=== PATIENT | female | born 1965 | race Caucasian/White ===

== ENCOUNTER 2020-11-05 14:44 | Inpatient (IN) | payer OTHER, SELFPAY ==
[~2020-11-05 14:44] MED LIST: Iopamidol-370 76% 500 ML 1 ML ONE
[2020-11-05 15:03] LABS: #Basophils 0.1 thou/uL (0.0-0.2); #Eosinphils 0.1 thou/uL (0.0-0.7); #Lymphocytes 1.9 thou/uL (1.20-3.40); #Monocytes 0.5 thou/uL (0.11-0.59); #Neutrophils 7.2 thou/uL (1.40-6.50); %Basophils 0.6 % (0.0-1.0); %Eosinophils 1.4 % (0.0-10.0); %Lymphocytes 19.7 % (21.0-51.0); %Monocytes 5.1 % (0.0-10.0); %Neutrophils 73.2 % (42.0-75.0); Hemoglobin 13.8 g/dL (12.0-16.0); Mean Corpuscular HGB CONC 33.9 g/dL (32.0-36.0); Mean Corpuscular Hemoglobin 28.7 pg (27.0-31.0); Mean Corpuscular Volume 84.7 fL (78.0-98.0); Platelet Count 222 thou/uL (130-400); RBC Distribution Width 12.6 % (11.5-14.5); White Blood Cell (WBC) Count 9.8 thou/uL (4.8-10.8)
[2020-11-05 15:09] LABS: INR-International Normal Ratio 0.9; PTT 27.3 sec (22.9-36.1)
--- NOTE | 2020-11-05 15:23 | CT ---
CT BRAIN WITHOUT CONTRAST: HISTORY: Right facial droop, right-sided weakness and numbness. COMPARISON: 05/21/2016. FINDINGS: There is a new focal area of decreased attenuation in the left basal ganglia. No evidence of transco rtical infarction, hemorrhage, midline shift, or abnormal extraaxial fluid collections is seen. The ventricular size is normal and the basilar cisterns patent. The bony calvarium is intact. The visua lized paranasal sinuses are well aerated. IMPRESSION: Acute nonhemorrhagic left basal ganglia infarction. Discussed over the telephone with ER physician, Dr. Garza, at 3:00 p.m. CODE CR POS: OFF
[2020-11-05 15:24] LABS: ALT (SGPT) 18 U/L (8-55); AST (SGOT) 15 U/L (5-34); Albumin 4.3 g/dL (3.5-5.0); Alkaline Phosphatase 76 U/L (40-110); Anion Gap 15 mmol/L (10-20); BUN (Urea Nitrogen) 12 mg/dL (9.8-20.1); Bilirubin, Total 0.3 mg/dL (0.2-1.2); CK (CPK) 55 U/L (29-168); Calc. Creatinine Clearance 0 mL/min (70-130); Carbon Dioxide 24 mmol/L (22-29); Chloride 106 mmol/L (98-107); Globulin 3.4 g/dL (2.4-3.5); Glucose 151 mg/dL (70-105); Potassium 3.8 mmol/L (3.5-5.1); Protein, Total 7.7 g/dL (6.0-8.3); Sodium 141 mmol/L (136-145)
--- NOTE | 2020-11-05 15:29 | CT ---
CTA ANGIO HEAD WITH AND WITHOUT CONTRAST: History: Stroke alert. Right-sided facial droop with right-sided weakness and numbness. Comparison: CT brain same day. Findings: CT angiogram of the head and neck performed after the intravenous administration of contrast. 3-D will dering provided. Moderate emphysematous changes lung apices. The pulmonary trunk size appears within normal limits. Th e transverse aorta size is within normal limits. Origin of the right vertebral artery is patent. The left vertebral artery is dominant. Right vertebra l artery is patent. Left vertebral artery origin is patent. Left vertebral artery is patent. Right common carotid artery is patent. 30-40% narrowing proximal right internal carotid artery due to soft plaque. Right internal carotid artery is patent. Left common carotid artery is patent. The left internal carotid artery is occluded from the carotid b ulb to the cervical, petrous, cavernous and supraclinoid regions. In the [place] anterior cerebral arteries are patent and feed the left middle cerebral arter y through communication with the anterior communicating artery and posterior communicating artery. Asymmetric decreased flow within the left M1, M2, and M3 segments as well as the left M4 segments. De creased flow within the left lateral lenticulostriate arteries. Right M1, M2, M3, and M4 segments are patent. 50% narrowing of the cavernous right ICA axial image 203. Posterior cerebral arteries are patent. Basilar artery is patent. Impression: 1. Occluded entire left internal carotid artery from the carotid bulb throughout the entire cervical segment as well as the petrous, cavernous, and supraclinoid regions. Diminished flow within the left MCA due to communication with the anterior and posterior communicating arteries. 2. Focal 50% narrowing of the right cavernous internal carotid artery axial image 203. 3. Patent vertebral arteries with dominant left vertebral artery. Dr. Louise notified of findings via telephone at 3:29 PM. CODE CR Transcribed Date/Time: 11/05/2020 3:45 PM
--- NOTE | 2020-11-05 15:32 | RAD ---
EXAM: Single view of the chest HISTORY: Right facial drooping and altered mental status COMPARISON: 05/21/2016 FINDINGS: Single view of the chest shows a normal sized cardiomediastinal silhouette. A calcified gr anuloma is seen in the left lung base. There may be a calcified dural based plaque in the inferior aspect of the right thorax. There is no evidence of consolidation or pleural effusion. No acute osseo us abnormality. IMPRESSION: No evidence of acute cardiopulmonary disease
[2020-11-05] MEDS ORDERED: Aspirin 325 MG TAB ONE ×2 (16:09)
[2020-11-05 16:10] LABS: Acetaminophen Less than 6.0 mcg/mL (10.0-30.0); Alcohol Less than 10 mg/dL (Less than 10); Magnesium 1.7 mg/dL (1.6-2.6); Salicylate Less than 8.0 mg/dL (15.0-30.0)
[2020-11-05] MEDS ORDERED: hydrALAZINE 20 MG/ML VIAL SLOW IVP PRN (18:05)
[2020-11-05] MEDS ORDERED: Ondansetron PF 4 MG/2 ML Vial IVP PRN (18:05)
[2020-11-05] MEDS ORDERED: Acetaminophen 325 MG TAB PO PRN (18:05)
[2020-11-05] MEDS ORDERED: Dextrose 50% Abboject 50 ML SYRINGE SLOW IVP PRN (18:14)
[2020-11-05] MEDS ORDERED: Dextrose 5% in Water 1,000 ML IV PRN (18:14)
--- NOTE | 2020-11-05 18:38 | PDOC.HHP ---
Hospitalist HPI Right-sided weaknss, slurred speech History of Present Illness: Patient is 55-year-old female with PMH of HTN, DM type II, depression, and fibromyalgia who presents to the ED with right-sided weakness and confusion. P atient states she had some weakness on her right side, associated with slurred speech and some confusion around 10:00 PM last night. Patient's boss called family as patient did not show up to work today. Family found patient today sitting on a chair confused, with right-sided weakness, slurred speech, and right facial droop. Patient denies headache, numbness, tingling, nausea, or vomiting. ED Course: CT head done in the ED showed acute nonhemorrhagic left basal ganglia infarction. CTA head showed occluded entire left internal carotid artery from the carotid bulb throughout the entire cervical segment as well as the petrous, cavernous, and supraclinoid regions. Focal narrowing of the right cavernous internal carotid artery. Allergies/Adverse Reactions: Allergy/AdvReac Type Severity Reaction Status Date / Time No Known Allergies Allergy Unverified 11/05/20 18:03 Comments: Metformin Metoprolol Gabapentin Patient does not remember the dose of her home meds Past History: PMHx: DM II, HTN , Depression, Fibromyalgia PSHx: cyst removal from back FHx: Father: heart disease Social: smokes 1/2 pack per day, denies alcohol or drug use Hospitalist HPI ROS Constitutional: denies: fever, chills Eyes: denies: vision change ENT: denies: throat pain Respiratory: denies: shortness of breath Cardiovascular: denies: chest pain Gastrointestinal: denies: nausea, vomiting Genitourinary: denies: dysuria Skin: denies: rash Neurological: reports: weakness, confusion. denies: numbness All other systems reviewed; all pertinent +/- noted in HPI/Subj Hospitalist Exam General Appearance: NAD, awake alert Eye: PERRL ENT: moist mucosa Neck: supple Heart: RRR, no murmur Respiratory: CTAB, no tachypnea Gastrointestinal: soft, non-tender, non-distended Extremities: no edema Skin: normal turgor Neurological: cranial nerve grossly intact (except mild right-sided facial droop), normal sensation to touch Neurological - other findings: decreased strength on the RUE and RLE, dysphasia present Psychiatric: A&O x 3 Psychiatric - other findings: at time slow to answer questions Hospitalist Results Result Diagrams: 11/05/20 14:53 11/05/20 14:53 Lab results: Laboratory Last Values WBC 9.8 thou/uL (4.8-10.8) 11/05/20 14:53 RBC 4.80 mill/uL (4.20-5.40) 11/05/20 14:53 Hgb 13.8 g/dL (12.0-16.0) 11/05/20 14:53 Hct 40.6 % (36.0-47.0) 11/05/20 14:53 MCV 84.7 fL (78.0-98.0) 11/05/20 14:53 MCH 28.7 pg (27.0-31.0) 11/05/20 14:53 MCHC 33.9 g/dL (32.0-36.0) 11/05/20 14:53 RDW 12.6 % (11.5-14.5) 11/05/20 14:53 Plt Count 222 thou/uL (130-400) 11/05/20 14:53 MPV 8.0 fL (7.4-10.4) 11/05/20 14:53 Neutrophils % 73.2 % (42.0-75.0) 11/05/20 14:53 Lymphocytes % 19.7 % (21.0-51.0) L 11/05/20 14:53 Monocytes % 5.1 % (0.0-10.0) 11/05/20 14:53 Eosinophils % 1.4 % (0.0-10.0) 11/05/20 14:53 Basophils % 0.6 % (0.0-1.0) 11/05/20 14:53 Neutrophils # 7.2 thou/uL (1.40-6.50) H 11/05/20 14:53 Lymphocytes # 1.9 thou/uL (1.20-3.40) 11/05/20 14:53 Monocytes # 0.5 thou/uL (0.11-0.59) 11/05/20 14:53 Eosinophils # 0.1 thou/uL (0.0-0.7) 11/05/20 14:53 Basophils # 0.1 thou/uL (0.0-0.2) 11/05/20 14:53 PT 12.0 sec (12.0-14.7) 11/05/20 14:53 INR 0.9 11/05/20 14:53 APTT 27.3 sec (22.9-36.1) 11/05/20 14:53 Sodium 141 mmol/L (136-145) 11/05/20 14:53 Potassium 3.8 mmol/L (3.5-5.1) 11/05/20 14:53 Chloride 106 mmol/L (98-107) 11/05/20 14:53 Carbon Dioxide 24 mmol/L (22-29) 11/05/20 14:53 Anion Gap 15 mmol/L (10-20) 11/05/20 14:53 BUN 12 mg/dL (9.8-20.1) 11/05/20 14:53 Creatinine 0.69 mg/dL (0.6-1.1) 11/05/20 14:53 Estimated GFR (MDRD) 89 11/05/20 14:53 Glucose 151 mg/dL (70-105) H 11/05/20 14:53 Lactic Acid 1.0 mmol/L (0.5-2.2) 11/05/20 15:13 Calcium 9.0 mg/dL (7.8-10.44) 11/05/20 14:53 Magnesium 1.7 mg/dL (1.6-2.6) 11/05/20 15:35 Total Bilirubin 0.3 mg/dL (0.2-1.2) 11/05/20 14:53 AST 15 U/L (5-34) 11/05/20 14:53 ALT 18 U/L (8-55) 11/05/20 14:53 Alkaline Phosphatase 76 U/L (40-110) 11/05/20 14:53 Creatine Kinase 55 U/L (29-168) 11/05/20 14:53 Troponin I Less than 0.010 ng/mL (< 0.028) 11/05/20 14:53 Serum Total Protein 7.7 g/dL (6.0-8.3) 11/05/20 14:53 Albumin 4.3 g/dL (3.5-5.0) 11/05/20 14:53 Globulin 3.4 g/dL (2.4-3.5) 11/05/20 14:53 Albumin/Globulin Ratio 1.3 g/dL (1.2-2.2) 11/05/20 14:53 Lipase 14 U/L (8-78) 11/05/20 15:35 Salicylates Less than 8.0 mg/dL (15.0-30.0) L 11/05/20 15:35 Acetaminophen Less than 6.0 mcg/mL (10.0-30.0) L 11/05/20 15:35 Plasma Alcohol Less than 10 mg/dL (Less than 10) 11/05/20 15:35 Hospitalist H&P A/P (1) CVA (cerebral vascular accident) Code(s): I63.9 - CEREBRAL INFARCTION, UNSPECIFIED Status: Acute Qualifiers: Precerebral and cerebral artery: carotid artery Laterality of affected vessel: left Assessment and Plan: Patient presented with right-sided weakness, dysphagia, and mild confusion. CT head showed acute left basal ganglia infarction. CTA head showed significant left internal carotid artery occlusion, ED physician talked to Dr. Hughes who stated that patient less likely to benefit from surgical intervention and manda mmended aspirin. Plan: -frequent neuro checks -permissive HTN -Lipid panel, Hgb A1c level -MRI brain wo contrast, Echo -daily aspirin and Lipitor -PT/OT/speech consulted (2) Carotid stenosis Code(s): I65.29 - OCCLUSION AND STENOSIS OF UNSPECIFIED CAROTID ARTERY Status: Chronic Qualifiers: Laterality: bilateral Qualified Code(s): I65.23 - Occlusion and stenosis of bilateral carotid arteries Assessment and Plan: -daily aspirin as above (3) HTN (hypertension) Code(s): I10 - ESSENTIAL (PRIMARY) HYPERTENSION Status: Chronic Assessment and Plan: -permissive HTN for now -Hydralazin iv prn (4) DM type 2 (diabetes mellitus, type 2) Status: Chronic Qualifiers: Diabetes mellitus terminal press operator insulin use: with terminal press operator use Assessment and Plan: Plan: -Hgb A1c -SS insulin ACHS
[2020-11-05 20:56] VITALS: BMI 22.1
[2020-11-05] MEDS: Atorvastatin Calcium 40 MG TAB PO SCH (21:04)
[2020-11-06 04:26] LABS: #Basophils 0.1 thou/uL (0.0-0.2); #Eosinphils 0.1 thou/uL (0.0-0.7); #Lymphocytes 1.8 thou/uL (1.20-3.40); #Monocytes 0.4 thou/uL (0.11-0.59); #Neutrophils 5.9 thou/uL (1.40-6.50); %Eosinophils 1.5 % (0.0-10.0); %Lymphocytes 21.5 % (21.0-51.0); %Monocytes 4.8 % (0.0-10.0); %Neutrophils 71.2 % (42.0-75.0); Hemoglobin 13.5 g/dL (12.0-16.0); Mean Corpuscular HGB CONC 33.9 g/dL (32.0-36.0); Mean Corpuscular Hemoglobin 28.3 pg (27.0-31.0); Mean Corpuscular Volume 83.5 fL (78.0-98.0); Mean Platelet Volume 8.1 fL (7.4-10.4); Platelet Count 205 thou/uL (130-400); RBC Distribution Width 12.4 % (11.5-14.5); Red Blood Cell (RBC) Count 4.77 mill/uL (4.20-5.40); White Blood Cell (WBC) Count 8.3 thou/uL (4.8-10.8)
[2020-11-06 04:33] LABS: Hemoglobin A1c 9.1 % (4.0-6.0)
--- NOTE | 2020-11-06 04:35 | PDOC.EVN ---
Event Note - Event Note Event Note: Nursing reported 8 beats non sustained vtach. Asymptomatic, VSS. Reviewed labs, mag relative low, will replace. Morning labs pending.
[2020-11-06 04:49] LABS: Anion Gap 13 mmol/L (10-20); BUN (Urea Nitrogen) 10 mg/dL (9.8-20.1); Calc. Creatinine Clearance 97 mL/min (70-130); Carbon Dioxide 26 mmol/L (22-29); Cardiac Risk 4.3 (Less than 4.5); Chloride 105 mmol/L (98-107); Cholesterol 223 mg/dl (< 200 Desired); Glucose 167 mg/dL (70-105); HDL Cholesterol 52 mg/dL (>60 Neg Risk); LDL Cholesterol, Calculated 131 mg/dL; Potassium 3.7 mmol/L (3.5-5.1); Sodium 140 mmol/L (136-145); Triglycerides 202 mg/dL (Less than 150)
[2020-11-06] MEDS: HumaLOG 300 UNITS/3 ML VIAL SC PRN ×3 (06:27→18:02)
[2020-11-06 06:36] LABS: SARS-CoV-2 PCR by NAA Not Detected (NotDetected)
--- NOTE | 2020-11-06 09:24 | MRI ---
Exam: Brain MRI without contrast HISTORY: Right-sided numbness, starting yesterday. COMPARISON: None Correlation: Noncontrast head CT 11/05/2020 FINDINGS: Calvarial marrow signal intensity: Appropriate T1 signal Gradient echo sequence: Hemorrhage associated with infarct involving the left deep shipman matter struct ures Brain parenchyma: There is edema associated with the acute the left basal ganglion infarct. Mild mass effect upon the left lateral ventricle. No significant midline shift. Cortical shipman-white matter differentiation: Preserved Restricted diffusion: Restricted diffusion involving the left basal ganglion. White matter signal intensities: T2, FLAIR white matter hyperintensities due to chronic small vessel ischemic changes Sinuses: Adequate aeration of the paranasal sinuses and mastoid air cells. IMPRESSION: 1. Acute infarct involving the left basal ganglion.
[2020-11-06] MEDS: Aspirin 81 mg Enteric Coated Tablet PO SCH (09:27)
--- NOTE | 2020-11-06 12:46 | CON ---
NEUROLOGY CONSULTATION DATE OF CONSULTATION: 11/06/2020 REASON FOR CONSULTATION: Right-sided weakness, slurred speech, CVA. HISTORY OF PRESENT ILLNESS: Ms. Kera Watters is a 55-year-old female with medical history significant for hypertension, type 2 diabetes mellitus, depression, and fibromyalgia, presented to the emergency room with right-sided weakness and altered mental status. Per the patient, she had weakness on her right side of the body with slurred speech with confusion, which was around 10:00 pm on 11/03/2020. Per the patient, the patient's boss called the family since she was not able to show up for work and they found her sitting in the chair confused with right-sided weakness, slurred speech, and right facial droop. She presented to the emergency room later in the evening and did not fit in the criteria for tPA. In the emergency room, head CT was done, which showed acute nonhemorrhagic left basal ganglia infarction. CTA of the head showed entire left internal carotid artery occlusion from the carotid bulb throughout the cervical segment, which extends to the petrous, cavernous, and supraclinoid region. There is also focal narrowing of the right cavernous internal carotid artery. She was given aspirin and admitted for further evaluation. The patient denies nausea, vomiting, headache, chest pain, abdominal pain, recent illness, double vision, loss of vision, problems with swallowing, but does have problems with speech associated with stroke-like symptoms. ALLERGIES: NO KNOWN DRUG ALLERGIES. HOME MEDICATIONS: 1. Metformin. 2. Gabapentin. PAST MEDICAL HISTORY: 1. Diabetes mellitus, type 2. 2. Hypertension. 3. Depression. 4. Fibromyalgia. PAST SURGICAL HISTORY: Cyst removal from back. FAMILY HISTORY: Father has history of coronary artery disease. SOCIAL HISTORY: The patient smokes half pack per day. Denies alcohol or illegal drug use. REVIEW OF SYSTEMS: All systems reviewed and were negative except the pertinent positive and negative mentioned in the HPI. Vital Signs & Weight: Vital Signs (12 hours) Temp Pulse Pulse Pulse Resp BP BP 11/06/20 09:50 106 H 97 137/101 H 154/83 H 11/06/20 07:50 97.7 F 70 12 11/06/20 03:00 98.1 F 109 H 22 H BP Pulse Ox 11/06/20 09:50 11/06/20 07:50 147/96 H 97 11/06/20 03:00 122/94 H 95 Weight Weight 137 lb 4.8 oz Additional Labs: Accuchecks 11/06/20 11/06/20 11/05/20 10:18 05:10 20:21 POC Glucose 322 H 182 H 126 H Active Medications Generic Name Dose Route Start Last Admin Trade Name Freq PRN Reason Stop Dose Admin Aspirin 81 mg 11/06/20 09:00 11/06/20 09:27 Aspirin 81 Mg Enteric Coated Tablet PO 81 mg DAILY YAIMA Administration Atorvastatin Calcium 80 mg 11/05/20 21:00 11/05/20 21:04 Atorvastatin Calcium 40 Mg Tab PO 80 mg HS YAIMA Administration Insulin Human Lispro 0 units 11/05/20 18:14 11/06/20 06:27 Humalog 300 Units/3 Ml Vial SC 2 unit .MILD SLIDING SCALE PRN Administration Mild Correctional Scale Vitals: Vital Signs (12 hours) Temp Pulse Pulse Pulse Resp BP BP 11/06/20 09:50 106 H 97 137/101 H 154/83 H 11/06/20 07:50 97.7 F 70 12 11/06/20 03:00 98.1 F 109 H 22 H BP Pulse Ox 11/06/20 09:50 11/06/20 07:50 147/96 H 97 11/06/20 03:00 122/94 H 95 Weight Weight 137 lb 4.8 oz PHYSICAL EXAMINATION: General Appearance: NAD, awake alert Eye: PERRL ENT: normocephalic atraumatic Neck: supple Heart: RRR Respiratory: CTAB, normal chest expansion Gastrointestinal: soft, normal bowel sounds Neurological: Mental status; the patient is alert and oriented to person, place, and time. She does have dysarthria. Cranial nerves 2 through 12 intact except 7 for right facial droop and 9 and 10 for dysarthria. Motor; muscle tone and bulk are normal. Strength; she does have mild right hemiparesis, 4/5. Sensory; intact. Cerebellar; finger-nose testing slow on the right secondary to weakness. Gait; deferred due to the patient's safety reason. DATA REVIEWED: I reviewed the labs, which were essentially unremarkable except hyperglycemia of 151. Lab results: Laboratory Last Values WBC 9.8 thou/uL (4.8-10.8) 11/05/20 14:53 RBC 4.80 mill/uL (4.20-5.40) 11/05/20 14:53 Hgb 13.8 g/dL (12.0-16.0) 11/05/20 14:53 Hct 40.6 % (36.0-47.0) 11/05/20 14:53 MCV 84.7 fL (78.0-98.0) 11/05/20 14:53 MCH 28.7 pg (27.0-31.0) 11/05/20 14:53 MCHC 33.9 g/dL (32.0-36.0) 11/05/20 14:53 RDW 12.6 % (11.5-14.5) 11/05/20 14:53 Plt Count 222 thou/uL (130-400) 11/05/20 14:53 MPV 8.0 fL (7.4-10.4) 11/05/20 14:53 Neutrophils % 73.2 % (42.0-75.0) 11/05/20 14:53 Lymphocytes % 19.7 % (21.0-51.0) L 11/05/20 14:53 Monocytes % 5.1 % (0.0-10.0) 11/05/20 14:53 Eosinophils % 1.4 % (0.0-10.0) 11/05/20 14:53 Basophils % 0.6 % (0.0-1.0) 11/05/20 14:53 Neutrophils # 7.2 thou/uL (1.40-6.50) H 11/05/20 14:53 Lymphocytes # 1.9 thou/uL (1.20-3.40) 11/05/20 14:53 Monocytes # 0.5 thou/uL (0.11-0.59) 11/05/20 14:53 Eosinophils # 0.1 thou/uL (0.0-0.7) 11/05/20 14:53 Basophils # 0.1 thou/uL (0.0-0.2) 11/05/20 14:53 PT 12.0 sec (12.0-14.7) 11/05/20 14:53 INR 0.9 11/05/20 14:53 APTT 27.3 sec (22.9-36.1) 11/05/20 14:53 Sodium 141 mmol/L (136-145) 11/05/20 14:53 Potassium 3.8 mmol/L (3.5-5.1) 11/05/20 14:53 Chloride 106 mmol/L (98-107) 11/05/20 14:53 Carbon Dioxide 24 mmol/L (22-29) 11/05/20 14:53 Anion Gap 15 mmol/L (10-20) 11/05/20 14:53 BUN 12 mg/dL (9.8-20.1) 11/05/20 14:53 Creatinine 0.69 mg/dL (0.6-1.1) 11/05/20 14:53 Estimated GFR (MDRD) 89 11/05/20 14:53 Glucose 151 mg/dL (70-105) H 11/05/20 14:53 Lactic Acid 1.0 mmol/L (0.5-2.2) 11/05/20 15:13 Calcium 9.0 mg/dL (7.8-10.44) 11/05/20 14:53 Magnesium 1.7 mg/dL (1.6-2.6) 11/05/20 15:35 Total Bilirubin 0.3 mg/dL (0.2-1.2) 11/05/20 14:53 AST 15 U/L (5-34) 11/05/20 14:53 ALT 18 U/L (8-55) 11/05/20 14:53 Alkaline Phosphatase 76 U/L (40-110) 11/05/20 14:53 Creatine Kinase 55 U/L (29-168) 11/05/20 14:53 Troponin I Less than 0.010 ng/mL (< 0.028) 11/05/20 14:53 Serum Total Protein 7.7 g/dL (6.0-8.3) 11/05/20 14:53 Albumin 4.3 g/dL (3.5-5.0) 11/05/20 14:53 Globulin 3.4 g/dL (2.4-3.5) 11/05/20 14:53 Albumin/Globulin Ratio 1.3 g/dL (1.2-2.2) 11/05/20 14:53 Lipase 14 U/L (8-78) 11/05/20 15:35 Salicylates Less than 8.0 mg/dL (15.0-30.0) L 11/05/20 15:35 Acetaminophen Less than 6.0 mcg/mL (10.0-30.0) L 11/05/20 15:35 Plasma Alcohol Less than 10 mg/dL (Less than 10) 11/05/20 15:35 ASSESSMENT AND PLAN: (1) CVA (cerebral vascular accident) Code(s): I63.9 - CEREBRAL INFARCTION, UNSPECIFIED Status: Acute Qualifiers: Precerebral and cerebral artery: carotid artery Laterality of affected vessel: left (2) Carotid stenosis Code(s): I65.29 - OCCLUSION AND STENOSIS OF UNSPECIFIED CAROTID ARTERY Status: Chronic (3) HTN (hypertension) Code(s): I10 - ESSENTIAL (PRIMARY) HYPERTENSION Status: Chronic (4) DM type 2 (diabetes mellitus, type 2) Status: Chronic MsLakeisha watters is a 55-year-old female with history significant for hypertension, diabetes mellitus, and fibromyalgia, presented with history of right-sided weakness with dysphagia and mild confusion. Head CT showed acute left basal ganglia infarction. CTA of the head did show left carotid artery occlusions occlusion. Dr. Hughes was asked to review the scans to see if she needs any surgical intervention regarding her age, but he does not feel that she is a candidate for surgical intervention. She will continue aspirin and high- intensity statin for secondary stroke prevention. Neuro checks every 4 hours. Check hemoglobin A1c, lipid panel, and TSH. Telemetry to rule out arrhythmias. 2D echo to evaluate left ventricular ejection fraction. Continue permissive control of blood pressure at this time. Strict control of blood glucose. EEG to evaluate for confusion associated with stroke-like symptoms. Continue home medications. Continue medical management per primary team. PT/OT/speech. We will continue to follow. Plan discussed in detail with the patient and the daughter at bedside. Thank you for the consult. Job ID: [id number] [email or web address]
--- NOTE | 2020-11-06 12:52 | PDOC.HOSPP ---
- Subjective Encounter Date: 11/06/20 Encounter Time: 10:10 Subjective: Patient seen this morning she has significant dysarthria and left-sided facial droop. She is able to walk independently with physical therapist supervision this morning. She is alert oriented x3 - Objective Vital Signs & Weight: Vital Signs (12 hours) Temp Pulse Pulse Pulse Resp BP BP 11/06/20 09:50 106 H 97 137/101 H 154/83 H 11/06/20 07:50 97.7 F 70 12 11/06/20 03:00 98.1 F 109 H 22 H BP Pulse Ox 11/06/20 09:50 11/06/20 07:50 147/96 H 97 11/06/20 03:00 122/94 H 95 Weight Weight 137 lb 4.8 oz Result Diagrams: 11/06/20 04:09 11/06/20 04:09 Additional Labs: Accuchecks 11/06/20 11/06/20 11/05/20 10:18 05:10 20:21 POC Glucose 322 H 182 H 126 H Hospitalist ROS - Medication Medications: Active Medications Generic Name Dose Route Start Last Admin Trade Name Freq PRN Reason Stop Dose Admin Aspirin 81 mg 11/06/20 09:00 11/06/20 09:27 Aspirin 81 Mg Enteric Coated Tablet PO 81 mg DAILY YAIMA Administration Atorvastatin Calcium 80 mg 11/05/20 21:00 11/05/20 21:04 Atorvastatin Calcium 40 Mg Tab PO 80 mg HS YAIMA Administration Insulin Human Lispro 0 units 11/05/20 18:14 11/06/20 06:27 Humalog 300 Units/3 Ml Vial SC 2 unit .MILD SLIDING SCALE PRN Administration Mild Correctional Scale Hospitalist Exam Vitals: Vital Signs (12 hours) Temp Pulse Pulse Pulse Resp BP BP 11/06/20 09:50 106 H 97 137/101 H 154/83 H 11/06/20 07:50 97.7 F 70 12 11/06/20 03:00 98.1 F 109 H 22 H BP Pulse Ox 11/06/20 09:50 11/06/20 07:50 147/96 H 97 11/06/20 03:00 122/94 H 95 Weight Weight 137 lb 4.8 oz General Appearance: NAD, awake alert Eye: PERRL ENT: normocephalic atraumatic Neck: supple Heart: RRR Respiratory: CTAB, normal chest expansion Gastrointestinal: soft, normal bowel sounds Neurological: normal sensation to touch, no weakness, facial droop, speech deficit Psychiatric: normal affect, normal behavior, A&O x 3 Hosp A/P - Plan CVA (cerebral vascular accident) Patient presented with right-sided weakness, dysphagia, and mild confusion. CT head showed acute left basal ganglia infarction. CTA head showed significant left internal carotid artery occlusion, ED physician talked to Dr. Hughes who stated that patient less likely to benefit from surgical intervention and recommended aspirin. -Continue with neurochecks -LDL level is 131--started on Lipitor -permissive HTN MRI of the brain shows acute infarct in the left basal ganglia -MRI brain wo contrast, Echo -daily aspirin and Lipitor -PT/OT/speech consulted -Echo showed EF of 65% and a normal size right ventricle no evidence of mitral regurgitation normal aortic valve. (2) Carotid stenosis -daily aspirin as above (3) HTN (hypertension) -permissive HTN for now -Hydralazin iv prn for systolic blood pressure above 180. (4) DM type 2 (diabetes mellitus, type 2) S -Hgb A1c 9.1; creatinine in the normal range we will start her on Metformin in addition to sliding scale insulin. Continue with physical therapy speech therapy. P She needs ongoing speech therapy evaluation and treatment upon discharge either to inpatient rehab or with home health
[2020-11-06] MEDS: Magnesium 2 GM/50 ML 2 GM in Premix Bag 1 BAG IVPB SCH (13:41)
[2020-11-06] MEDS: metFORMIN 500 MG TAB PO SCH (18:02)
[2020-11-06] MEDS: Atorvastatin Calcium 40 MG TAB PO SCH (20:08)
[2020-11-07 05:17] LABS: #Eosinphils 0.1 thou/uL (0.0-0.7); #Lymphocytes 1.9 thou/uL (1.20-3.40); #Monocytes 0.5 thou/uL (0.11-0.59); #Neutrophils 5.3 thou/uL (1.40-6.50); %Basophils 0.4 % (0.0-1.0); %Eosinophils 1.1 % (0.0-10.0); %Monocytes 6.6 % (0.0-10.0); %Neutrophils 67.9 % (42.0-75.0); Hemoglobin 13.8 g/dL (12.0-16.0); Mean Corpuscular HGB CONC 33.4 g/dL (32.0-36.0); Mean Corpuscular Volume 83.9 fL (78.0-98.0); Mean Platelet Volume 8.3 fL (7.4-10.4); Platelet Count 213 thou/uL (130-400); RBC Distribution Width 12.6 % (11.5-14.5); Red Blood Cell (RBC) Count 4.93 mill/uL (4.20-5.40); White Blood Cell (WBC) Count 7.9 thou/uL (4.8-10.8)
[2020-11-07 05:33] LABS: Anion Gap 15 mmol/L (10-20); BUN (Urea Nitrogen) 13 mg/dL (9.8-20.1); Calc. Creatinine Clearance 90 mL/min (70-130); Calcium 8.9 mg/dL (7.8-10.44); Carbon Dioxide 26 mmol/L (22-29); Chloride 102 mmol/L (98-107); Glucose 221 mg/dL (70-105); Potassium 3.6 mmol/L (3.5-5.1); Sodium 139 mmol/L (136-145)
[2020-11-07] MEDS: HumaLOG 300 UNITS/3 ML VIAL SC PRN ×3 (06:09→17:49)
[2020-11-07] MEDS: Aspirin 81 mg Enteric Coated Tablet PO SCH (09:34)
[2020-11-07] MEDS: metFORMIN 500 MG TAB PO SCH ×2 (09:34→17:49)
--- NOTE | 2020-11-07 12:08 | RAD ---
MODIFIED BARIUM SWALLOW: HISTORY: Dysphagia following cerebral infarction. EXPOSURE: 1.7 minutes. 0.797 uGy*^cm2. FINDINGS: In the presence of a speech pathologist, the patient was administered thin liquid, thick liquid, pudd ing and solid consistencies. There is penetration with the thin liquid, nectar thick liquid, and pudding consistency. There is pre mature spillage with all of those consistencies as well as with solid consistency. IMPRESSION: Please refer to speech pathologist report for feeding recommendation Transcribed Date/Time: 11/07/2020 12:26 PM
--- NOTE | 2020-11-07 12:14 | PDOC.HOSPP ---
- Subjective Encounter Date: 11/07/20 Encounter Time: 08:30 Subjective: Patient speech is much better improved speech therapy followed it looks like she probably need modified barium swallow study which she will be doing today. She is ambulating without any distress. Ongoing dysarthria. Patient discharge plan discussed and she prefers to go home and will arrange for home speech therapy. - Objective Vital Signs & Weight: Vital Signs (12 hours) Temp Pulse Resp BP BP Pulse Ox 11/07/20 11:55 98.2 F 105 H 20 152/82 H 95 11/07/20 08:00 98.3 F 104 H 18 158/84 H 99 11/07/20 04:00 98.6 F 106 H 18 134/92 H 95 Weight Weight 137 lb 4.8 oz I&O: 11/06/20 11/07/20 11/08/20 06:59 06:59 06:59 Intake Total 1050 Balance 1050 Result Diagrams: 11/07/20 04:40 11/07/20 04:40 Additional Labs: Accuchecks 11/07/20 11/07/20 11/06/20 10:25 06:02 20:25 POC Glucose 246 H 244 H 185 H 11/06/20 17:03 POC Glucose 258 H Hospitalist ROS - Medication Medications: Active Medications Generic Name Dose Route Start Last Admin Trade Name Buzzq PRN Reason Stop Dose Admin Aspirin 81 mg 11/06/20 09:00 11/07/20 09:34 Aspirin 81 Mg Enteric Coated Tablet PO 81 mg DAILY YAIMA Administration Atorvastatin Calcium 80 mg 11/05/20 21:00 11/06/20 20:08 Atorvastatin Calcium 40 Mg Tab PO 80 mg HS YAIMA Administration Magnesium Sulfate 2 gm/ Device 50 mls @ 50 mls/hr 11/06/20 14:00 11/06/20 13:41 IVPB 50 mls 1400 YAIMA Administration Insulin Human Lispro 0 units 11/05/20 18:14 11/07/20 06:09 Humalog 300 Units/3 Ml Vial SC 3 unit .MILD SLIDING SCALE PRN Administration Mild Correctional Scale Metformin HCl 500 mg 11/06/20 17:00 11/07/20 09:34 Metformin 500 Mg Tab PO 500 mg BID-WM YAIMA Administration Hospitalist Exam Vitals: Vital Signs (12 hours) Temp Pulse Resp BP BP Pulse Ox 11/07/20 11:55 98.2 F 105 H 20 152/82 H 95 11/07/20 08:00 98.3 F 104 H 18 158/84 H 99 11/07/20 04:00 98.6 F 106 H 18 134/92 H 95 Weight Weight 137 lb 4.8 oz General Appearance: NAD, awake alert Eye: PERRL ENT: normocephalic atraumatic Neck: supple Heart: RRR, normal peripheral pulses Respiratory: CTAB, normal chest expansion Gastrointestinal: soft, normal bowel sounds Neurological: no weakness, speech deficit Hosp A/P - Plan CVA (cerebral vascular accident) Patient presented with right-sided weakness, dysphagia, and mild confusion. CT head showed acute left basal ganglia infarction. CTA head showed significant left internal carotid artery occlusion, ED physician talked to Dr. Hughes who stated that patient less likely to benefit from surgical intervention and recommended aspirin. -Continue with neurochecks -LDL level is 131--started on Lipitor -permissive HTN MRI of the brain shows acute infarct in the left basal ganglia -MRI brain wo contrast, Echo -daily aspirin and Lipitor -PT/OT/speech consulted -Echo showed EF of 65% and a normal size right ventricle no evidence of mitral regurgitation normal aortic valve. (2) Carotid stenosis -daily aspirin as above (3) HTN (hypertension) -permissive HTN for now -Hydralazin iv prn for systolic blood pressure above 180. (4) DM type 2 (diabetes mellitus, type 2) S -Hgb A1c 9.1; creatinine in the normal range we will start her on Metformin in addition to sliding scale insulin. Continue with physical therapy speech therapy. P She needs ongoing speech therapy evaluation and treatment upon discharge either to inpatient rehab or with home health 11th speech is much better improved speech therapy followed it looks like she probably need modified barium swallow study which she will be doing today. She is ambulating without any distress. Ongoing dysarthria. Patient discharge plan discussed and she prefers to go home and will arrange for home speech therapy.
--- NOTE | 2020-11-07 12:59 | PDOC.NEUPN ---
- Subjective Encounter Date: 11/07/20 Subjective: Ms. Watters feels better today. She underwent modified barium swallow and recommended to have nectar and thick liquid diet. - Objective Vital Signs & Weight: Vital Signs (12 hours) Temp Pulse Resp BP BP Pulse Ox 11/07/20 11:55 98.2 F 105 H 20 152/82 H 95 11/07/20 08:00 98.3 F 104 H 18 158/84 H 99 11/07/20 04:00 98.6 F 106 H 18 134/92 H 95 Weight Weight 137 lb 4.8 oz I&O: 11/06/20 11/07/20 11/08/20 06:59 06:59 06:59 Intake Total 1050 Balance 1050 Result Diagrams: 11/07/20 04:40 11/07/20 04:40 Additional Labs: Accuchecks 11/07/20 11/07/20 11/06/20 10:25 06:02 20:25 POC Glucose 246 H 244 H 185 H 11/06/20 17:03 POC Glucose 258 H Radiology Reviewed by me: Yes EKG Reviewed by me: Yes ROS - Review of Systems Constitutional: denies: fever, chills, sweats, weakness, malaise, other ENT: denies: ear pain, ear discharge, nose pain, nose discharge, nose congestion, mouth pain, mouth swelling, throat pain, throat swelling, other Gastrointestinal: denies: nausea, vomiting, abdominal pain, diarrhea, constipation, melena, hematochezia, other Musculoskeletal: denies: neck pain, shoulder pain, arm pain, back pain, hand pain, leg pain, foot pain, other Skin: denies: rash, lesions, yaneth, bruising, other Neurological: reports: weakness, numbness - Medication Medications: Active Medications Generic Name Dose Route Start Last Admin Trade Name Freq PRN Reason Stop Dose Admin Aspirin 81 mg 11/06/20 09:00 11/07/20 09:34 Aspirin 81 Mg Enteric Coated Tablet PO 81 mg DAILY YAIMA Administration Atorvastatin Calcium 80 mg 11/05/20 21:00 11/06/20 20:08 Atorvastatin Calcium 40 Mg Tab PO 80 mg HS YAIMA Administration Magnesium Sulfate 2 gm/ Device 50 mls @ 50 mls/hr 11/06/20 14:00 11/06/20 13:41 IVPB 50 mls 1400 YAIMA Administration Insulin Human Lispro 0 units 02/09/21 18:14 11/07/20 12:28 Humalog 300 Units/3 Ml Vial SC 3 unit .MILD SLIDING SCALE PRN Administration Mild Correctional Scale Metformin HCl 500 mg 11/06/20 17:00 11/07/20 09:34 Metformin 500 Mg Tab PO 500 mg BID-WM YAIMA Administration - Exam General Appearance: awake alert Eye: PERRL ENT: normocephalic atraumatic Neck: supple Respiratory: CTAB Cardiovascular: RRR Gastrointestinal: soft Extremities: no cyanosis Skin: normal turgor Neurological: no new deficit Musculoskeletal: normal tone, no muscle wasting PSYCH: A&O x 3 Results - Labs Result Diagrams: 11/07/20 04:40 11/07/20 04:40 Lab results: WBC 7.9 thou/uL (4.8-10.8) 11/07/20 04:40 Hgb 13.8 g/dL (12.0-16.0) 11/07/20 04:40 Hct 41.4 % (36.0-47.0) 11/07/20 04:40 MCV 83.9 fL (78.0-98.0) 11/07/20 04:40 Plt Count 213 thou/uL (130-400) 11/07/20 04:40 Neutrophils % 67.9 % (42.0-75.0) 11/07/20 04:40 Sodium 139 mmol/L (136-145) 11/07/20 04:40 Potassium 3.6 mmol/L (3.5-5.1) 11/07/20 04:40 Chloride 102 mmol/L (98-107) 11/07/20 04:40 Carbon Dioxide 26 mmol/L (22-29) 11/07/20 04:40 BUN 13 mg/dL (9.8-20.1) 11/07/20 04:40 Creatinine 0.70 mg/dL (0.6-1.1) 11/07/20 04:40 Glucose 221 mg/dL (70-105) H 11/07/20 04:40 Lactic Acid 1.0 mmol/L (0.5-2.2) 11/05/20 15:13 Calcium 8.9 mg/dL (7.8-10.44) 11/07/20 04:40 Total Bilirubin 0.3 mg/dL (0.2-1.2) 11/05/20 14:53 AST 15 U/L (5-34) 11/05/20 14:53 ALT 18 U/L (8-55) 11/05/20 14:53 Alkaline Phosphatase 76 U/L (40-110) 11/05/20 14:53 Creatine Kinase 55 U/L (29-168) 11/05/20 14:53 Troponin I Less than 0.010 ng/mL (< 0.028) 11/05/20 14:53 Serum Total Protein 7.7 g/dL (6.0-8.3) 11/05/20 14:53 Albumin 4.3 g/dL (3.5-5.0) 11/05/20 14:53 Lipase 14 U/L (8-78) 11/05/20 15:35 - Radiology Interpretation MRI - head Additional Comment: MRI of the brain showed showed acute infarction in the left basal ganglia PN A/P (1) CVA (cerebral vascular accident) Code(s): I63.9 - CEREBRAL INFARCTION, UNSPECIFIED Status: Acute Qualifiers: Precerebral and cerebral artery: carotid artery Laterality of affected vessel: left (2) Carotid stenosis Code(s): I65.29 - OCCLUSION AND STENOSIS OF UNSPECIFIED CAROTID ARTERY Status: Chronic Qualifiers: Laterality: bilateral Qualified Code(s): I65.23 - Occlusion and stenosis of bilateral carotid arteries (3) DM type 2 (diabetes mellitus, type 2) Status: Chronic Qualifiers: Diabetes mellitus fdc insulin use: with buttermaker use (4) HTN (hypertension) Code(s): I10 - ESSENTIAL (PRIMARY) HYPERTENSION Status: Chronic - Plan Daily Plan: PT/OT, speech therapy, DVT proph w/SCDs Ms. Watters is a 55-year-old female with history significant for diabetes, hypertension and tobacco abuse presented with altered mental status and focal right-sided deficits. She continues to have speech deficits and mild right hemiparesis. MRI of the brain reviewed which showed acute infarction in the left basal ganglia. CTA of the head did not reveal hemodynamically significant stenosis. CTA of the neck showed left carotid artery stenosis. The left carotid artery is completely occluded. Surgical intervention seems to be less likely per neurosurgery. Continue aspirin and high intensity statin for secondary stroke prevention. Monitor blood pressure and strict control of blood glucose. EEG completed. We will follow up on the results. Modified barium barium swallow completed today. She was recommended to have take nectar liquid diet. PT/OT/speech. Telemetry to rule out arrhythmias. 2D echo showed left ventricular ejection fraction 60 to 65%. No thrombus or PFO. Telemetry to rule out arrhythmias. Patient counseled about tobacco abuse. Patient seems to be agitated so consider nicotine patch. Continue home medications. Continue medical management per primary team. Plan discussed in detail with the nursing staff and the patient.
--- NOTE | 2020-11-07 13:20 | CT ---
CTA ANGIO HEAD WITH AND WITHOUT CONTRAST: History: Stroke alert. Right-sided facial droop with right-sided weakness and numbness. Comparison: CT brain same day. Findings: CT angiogram of the head and neck performed after the intravenous administration of contrast. 3-D will dering provided. Moderate emphysematous changes lung apices. The pulmonary trunk size appears within normal limits. Th e transverse aorta size is within normal limits. Origin of the right vertebral artery is patent. The left vertebral artery is dominant. Right vertebra l artery is patent. Left vertebral artery origin is patent. Left vertebral artery is patent. Right common carotid artery is patent. 30-40% narrowing proximal right internal carotid artery due to soft plaque. Right internal carotid artery is patent. Left common carotid artery is patent. The left internal carotid artery is occluded from the carotid b ulb to the cervical, petrous, cavernous and supraclinoid regions. [place] anterior cerebral arteries are patent and feed the left middle cerebral arter y through communication with the anterior communicating artery and posterior communicating artery. Asymmetric decreased flow within the left M1, M2, and M3 segments as well as the left M4 segments. De creased flow within the left lateral lenticulostriate arteries. Right M1, M2, M3, and M4 segments are patent. 50% narrowing of the cavernous right ICA axial image 203. Posterior cerebral arteries are patent. Basilar artery is patent. Impression: 1. Occluded entire left internal carotid artery from the carotid bulb throughout the entire cervical segment as well as the petrous, cavernous, and supraclinoid regions. Diminished flow within the left MCA due to communication with the anterior and posterior communicating arteries. 2. Focal 50% narrowing of the right cavernous internal carotid artery axial image 203. 3. Patent vertebral arteries with dominant left vertebral artery. Dr. Louise notified of findings via telephone at 3:29 PM. CODE CR Transcribed Date/Time: 11/07/2020 1:19 PM
[2020-11-07] MEDS: Magnesium 2 GM/50 ML 2 GM in Premix Bag 1 BAG IVPB SCH (14:35)
--- NOTE | 2020-11-07 16:31 | PDOC.EEG ---
Neurology EEG Report - Report Report: This EEG was performed using 24 channel [employer] video EEG machine with 24 disc electrodes. This was an extended 2 hours 5 minutes of inpatient video EEG recording. Digital analysis of the EEG was done for spike and seizure detection which revealed no abnormalities. Background: The posterior background rhythm is 9-10 Hz. The background rhythm attenuates with eye opening and enhances with eye closure. Hyperventilation: Not performed. Photic Stimulation: Bioccipital symmetric driving response is observed. Sleep: Drowsiness and sleep are observed. EEG Diagnosis: Occasional irregular theta activity seen during the recording Clinical Interpretation: This EEG is consistent with mild , generalized , nonspecific cerebral dysfunction.
[2020-11-07] MEDS: Atorvastatin Calcium 40 MG TAB PO SCH (20:38)
[2020-11-08 00:40] LABS: #Basophils 0.1 thou/uL (0.0-0.2); #Eosinphils 0.1 thou/uL (0.0-0.7); #Lymphocytes 2.8 thou/uL (1.20-3.40); #Monocytes 0.6 thou/uL (0.11-0.59); #Neutrophils 5.5 thou/uL (1.40-6.50); %Basophils 0.6 % (0.0-1.0); %Eosinophils 1.4 % (0.0-10.0); %Monocytes 6.3 % (0.0-10.0); %Neutrophils 60.7 % (42.0-75.0); Anion Gap 13 mmol/L (10-20); BUN (Urea Nitrogen) 17 mg/dL (9.8-20.1); Calc. Creatinine Clearance 92 mL/min (70-130); Carbon Dioxide 27 mmol/L (22-29); Chloride 103 mmol/L (98-107); Glucose 164 mg/dL (70-105); Hemoglobin 13.3 g/dL (12.0-16.0); Mean Corpuscular HGB CONC 34.2 g/dL (32.0-36.0); Mean Corpuscular Hemoglobin 29.2 pg (27.0-31.0); Mean Corpuscular Volume 85.4 fL (78.0-98.0); Mean Platelet Volume 8.3 fL (7.4-10.4); Platelet Count 182 thou/uL (130-400); Potassium 3.5 mmol/L (3.5-5.1); RBC Distribution Width 12.6 % (11.5-14.5); Red Blood Cell (RBC) Count 4.56 mill/uL (4.20-5.40); Sodium 139 mmol/L (136-145)
[2020-11-08 04:43] LABS: #Eosinphils 0.1 thou/uL (0.0-0.7); #Lymphocytes 2.2 thou/uL (1.20-3.40); #Monocytes 0.6 thou/uL (0.11-0.59); #Neutrophils 5.4 thou/uL (1.40-6.50); %Basophils 0.4 % (0.0-1.0); %Eosinophils 1.7 % (0.0-10.0); %Lymphocytes 26.1 % (21.0-51.0); %Monocytes 7.6 % (0.0-10.0); %Neutrophils 64.3 % (42.0-75.0); Hemoglobin 13.3 g/dL (12.0-16.0); Mean Corpuscular HGB CONC 33.6 g/dL (32.0-36.0); Mean Corpuscular Hemoglobin 28.1 pg (27.0-31.0); Mean Corpuscular Volume 83.8 fL (78.0-98.0); Mean Platelet Volume 8.2 fL (7.4-10.4); Platelet Count 190 thou/uL (130-400); RBC Distribution Width 12.5 % (11.5-14.5); Red Blood Cell (RBC) Count 4.74 mill/uL (4.20-5.40); White Blood Cell (WBC) Count 8.4 thou/uL (4.8-10.8)
[2020-11-08 05:08] LABS: Anion Gap 11 mmol/L (10-20); BUN (Urea Nitrogen) 17 mg/dL (9.8-20.1); Calc. Creatinine Clearance 89 mL/min (70-130); Calcium 9.1 mg/dL (7.8-10.44); Carbon Dioxide 30 mmol/L (22-29); Chloride 102 mmol/L (98-107); Glucose 209 mg/dL (70-105); Potassium 3.8 mmol/L (3.5-5.1); Sodium 139 mmol/L (136-145)
[2020-11-08] MEDS: HumaLOG 300 UNITS/3 ML VIAL SC PRN ×2 (05:27→11:07)
[2020-11-08] MEDS: metFORMIN 500 MG TAB PO SCH (09:29)
[2020-11-08] MEDS: Aspirin 81 mg Enteric Coated Tablet PO SCH (09:29)
[2020-11-08 12:13] VITALS: BP 159/78; TEMP 98.2
--- NOTE | 2020-11-08 13:15 | PDOC.HOSPP ---
- Subjective Encounter Date: 11/08/20 Encounter Time: 09:35 Subjective: Obvious patient had few episodes of nonsustained V. tach overnight. Her mag level is good. I talked to her this morning daughter at bedside her speech is much improved quite comprehensible. However due to the nonsustained V. tach we are going to wait until cardiology input. - Objective Vital Signs & Weight: Vital Signs (12 hours) Temp Pulse Resp BP Pulse Ox 11/08/20 12:00 98.2 F 95 20 159/78 H 97 11/08/20 08:00 97.9 F 107 H 20 136/78 96 11/08/20 03:57 98.7 F 93 14 147/55 H 97 Weight Weight 137 lb 4.8 oz I&O: 11/07/20 11/08/20 11/09/20 06:59 06:59 06:59 Intake Total 1050 890 Balance 1050 890 Result Diagrams: 11/08/20 04:16 11/08/20 04:16 Additional Labs: Accuchecks 11/08/20 11/08/20 11/07/20 10:36 05:15 20:28 POC Glucose 283 H 221 H 182 H 11/07/20 16:27 POC Glucose 201 H Hospitalist ROS - Medication Medications: Active Medications Generic Name Dose Route Start Last Admin Trade Name Freq PRN Reason Stop Dose Admin Aspirin 81 mg 11/06/20 09:00 11/08/20 09:29 Aspirin 81 Mg Enteric Coated Tablet PO 81 mg DAILY YAIMA Administration Atorvastatin Calcium 80 mg 11/05/20 21:00 11/07/20 20:38 Atorvastatin Calcium 40 Mg Tab PO 80 mg HS YAIMA Administration Magnesium Sulfate 2 gm/ Device 50 mls @ 50 mls/hr 11/06/20 14:00 11/07/20 14:35 IVPB 50 mls 1400 YAIMA Administration Insulin Human Lispro 0 units 11/05/20 18:14 11/08/20 11:07 Humalog 300 Units/3 Ml Vial SC 4 unit .MILD SLIDING SCALE PRN Administration Mild Correctional Scale Metformin HCl 500 mg 11/06/20 17:00 11/08/20 09:29 Metformin 500 Mg Tab PO 500 mg BID-WM YAIMA Administration Hospitalist Exam Vitals: Vital Signs (12 hours) Temp Pulse Resp BP Pulse Ox 11/08/20 12:00 98.2 F 95 20 159/78 H 97 11/08/20 08:00 97.9 F 107 H 20 136/78 96 11/08/20 03:57 98.7 F 93 14 147/55 H 97 Weight Weight 137 lb 4.8 oz General Appearance: NAD, awake alert Eye: PERRL ENT: normocephalic atraumatic Neck: supple Heart: RRR, normal peripheral pulses Respiratory: CTAB, normal chest expansion Gastrointestinal: soft, normal bowel sounds Neurological: cranial nerve grossly intact, no new deficit Psychiatric: normal affect, normal behavior, A&O x 3 Hosp A/P - Plan CVA (cerebral vascular accident) Patient presented with right-sided weakness, dysphagia, and mild confusion. CT head showed acute left basal ganglia infarction. CTA head showed significant left internal carotid artery occlusion, ED physician talked to Dr. Hughes who stated that patient less likely to benefit from surgical intervention and recommended aspirin. -Continue with neurochecks -LDL level is 131--started on Lipitor -permissive HTN MRI of the brain shows acute infarct in the left basal ganglia -MRI brain wo contrast, Echo -daily aspirin and Lipitor -PT/OT/speech consulted -Echo showed EF of 65% and a normal size right ventricle no evidence of mitral regurgitation normal aortic valve. (2) Carotid stenosis -daily aspirin as above (3) HTN (hypertension) -permissive HTN for now -Hydralazin iv prn for systolic blood pressure above 180. (4) DM type 2 (diabetes mellitus, type 2) S -Hgb A1c 9.1; creatinine in the normal range we will start her on Metformin in addition to sliding scale insulin. Continue with physical therapy speech therapy. P She needs ongoing speech therapy evaluation and treatment upon discharge either to inpatient rehab or with home health 11 speech is much better improved speech therapy followed it looks like she probably need modified barium swallow study which she will be doing today. She is ambulating without any distress. Ongoing dysarthria. Patient discharge plan discussed and she prefers to go home and will arrange for home speech therapy. 12th few episodes of nonsustained V. tach overnight. Her mag level is good. I talked to her this morning, daughter at bedside -her speech is much improved quite comprehensible. However due to the nonsustained V. tach we are going to wait until cardiology input. Patient going home probably tomorrow we can give outpatient speech therapy prescription as her insurance may be limited
[2020-11-08] MEDS ORDERED: Metoprolol Tartrate 25 MG TAB PO SCH ×2 (14:30→21:00)
--- NOTE | 2020-11-08 15:07 | PDOC.NEUPN ---
- Subjective Encounter Date: 11/08/20 Subjective: Ms. Watters seems better today but discharge is held because of episodes of supraventricular tachycardia. Awaiting cardiology consult. - Objective Vital Signs & Weight: Vital Signs (12 hours) Temp Pulse Resp BP Pulse Ox 11/08/20 12:00 98.2 F 95 20 159/78 H 97 11/08/20 08:00 97.9 F 107 H 20 136/78 96 11/08/20 03:57 98.7 F 93 14 147/55 H 97 Weight Weight 137 lb 4.8 oz I&O: 11/07/20 11/08/20 11/09/20 06:59 06:59 06:59 Intake Total 1050 890 Balance 1050 890 Result Diagrams: 11/08/20 04:16 11/08/20 04:16 Additional Labs: Accuchecks 11/08/20 11/08/20 11/07/20 10:36 05:15 20:28 POC Glucose 283 H 221 H 182 H 11/07/20 16:27 POC Glucose 201 H Radiology Reviewed by me: Yes EKG Reviewed by me: Yes ROS - Review of Systems Eyes: denies: pain, vision change, conjunctivae inflammation, eyelid inflam mation, redness, other ENT: denies: ear pain, ear discharge, nose pain, nose discharge, nose congestion, mouth pain, mouth swelling, throat pain, throat swelling, other Respiratory: denies: cough, dry, shortness of breath, hemoptysis, SOB with excertion, pleuritic pain, sputum, wheezing, other Gastrointestinal: denies: nausea, vomiting, abdominal pain, diarrhea, constipation, melena, hematochezia, other Genitourinary: denies: dysuria, frequency, incontinence, hematuria, retention, other Neurological: reports: weakness, numbness, change in speech - Medication Medications: Active Medications Generic Name Dose Route Start Last Admin Trade Name Freq PRN Reason Stop Dose Admin Aspirin 81 mg 11/06/20 09:00 11/08/20 09:29 Aspirin 81 Mg Enteric Coated Tablet PO 81 mg DAILY YAIMA Administration Atorvastatin Calcium 80 mg 11/05/20 21:00 11/07/20 20:38 Atorvastatin Calcium 40 Mg Tab PO 80 mg HS YAIMA Administration Insulin Human Lispro 0 units 11/05/20 18:14 11/08/20 11:07 Humalog 300 Units/3 Ml Vial SC 4 unit .MILD SLIDING SCALE PRN Administration Mild Correctional Scale Metformin HCl 500 mg 11/06/20 17:00 11/08/20 09:29 Metformin 500 Mg Tab PO 500 mg BID-WM YAIMA Administration - Exam General Appearance: awake alert Eye: PERRL ENT: normocephalic atraumatic Neck: supple Respiratory: CTAB Cardiovascular: RRR Gastrointestinal: soft Extremities: no cyanosis Skin: normal turgor Neurological: no new deficit Musculoskeletal: normal tone, no muscle wasting PSYCH: normal affect, normal behavior, A&O x 3 Results - Labs Result Diagrams: 11/08/20 04:16 11/08/20 04:16 Lab results: WBC 8.4 thou/uL (4.8-10.8) 11/08/20 04:16 Hgb 13.3 g/dL (12.0-16.0) 11/08/20 04:16 Hct 39.7 % (36.0-47.0) 11/08/20 04:16 MCV 83.8 fL (78.0-98.0) 11/08/20 04:16 Plt Count 190 thou/uL (130-400) 11/08/20 04:16 Neutrophils % 64.3 % (42.0-75.0) 11/08/20 04:16 Sodium 139 mmol/L (136-145) 11/08/20 04:16 Potassium 3.8 mmol/L (3.5-5.1) 11/08/20 04:16 Chloride 102 mmol/L (98-107) 11/08/20 04:16 Carbon Dioxide 30 mmol/L (22-29) H 11/08/20 04:16 BUN 17 mg/dL (9.8-20.1) 11/08/20 04:16 Creatinine 0.71 mg/dL (0.6-1.1) 11/08/20 04:16 Glucose 209 mg/dL (70-105) H 11/08/20 04:16 Lactic Acid 1.0 mmol/L (0.5-2.2) 11/05/20 15:13 Calcium 9.1 mg/dL (7.8-10.44) 11/08/20 04:16 Total Bilirubin 0.3 mg/dL (0.2-1.2) 11/05/20 14:53 AST 15 U/L (5-34) 11/05/20 14:53 ALT 18 U/L (8-55) 11/05/20 14:53 Alkaline Phosphatase 76 U/L (40-110) 11/05/20 14:53 Creatine Kinase 55 U/L (29-168) 11/05/20 14:53 Troponin I Less than 0.010 ng/mL (< 0.028) 11/05/20 14:53 Serum Total Protein 7.7 g/dL (6.0-8.3) 11/05/20 14:53 Albumin 4.3 g/dL (3.5-5.0) 11/05/20 14:53 Lipase 14 U/L (8-78) 11/05/20 15:35 - Radiology Interpretation MRI - head Additional Comment: RI of the brain was consistent with acute infarction PN A/P (1) CVA (cerebral vascular accident) Code(s): I63.9 - CEREBRAL INFARCTION, UNSPECIFIED Status: Acute Qualifiers: Precerebral and cerebral artery: carotid artery Laterality of affected vessel: left (2) Carotid stenosis Code(s): I65.29 - OCCLUSION AND STENOSIS OF UNSPECIFIED CAROTID ARTERY Status: Chronic Qualifiers: Laterality: bilateral Qualified Code(s): I65.23 - Occlusion and stenosis of bilateral carotid arteries (3) DM type 2 (diabetes mellitus, type 2) Status: Chronic Qualifiers: Diabetes mellitus fci insulin use: with intermodal customer service use (4) HTN (hypertension) Code(s): I10 - ESSENTIAL (PRIMARY) HYPERTENSION Status: Chronic - Plan Daily Plan: plan discussed w/ family (Daughter at bedside), PT/OT, speech therapy, out of bed/ambulate Ms. Watters is a 55-year-old female with history significant for diabetes, hyperte nsion and tobacco abuse presented with altered mental status and focal right- sided deficits. She continues to have speech deficits and mild right hemiparesis. She is doing better and was able to walk without assistance. She was ready to be discharged but then over the last 24 hours she has episodes of supraventricular tachycardia so awaiting cardiology input. MRI of the brain reviewed which showed acute infarction in the left basal ganglia. CTA of the head did not reveal hemodynamically significant stenosis. CTA of the neck showed left carotid artery stenosis. The left carotid artery is completely occluded. Surgical intervention seems to be less likely per neurosurgery. Continue aspirin and high intensity statin for secondary stroke prevention. Monitor blood pressure and strict control of blood glucose. EEG is negative for seizure activity Modified barium barium swallow completed today. She was recommended to have take nectar liquid diet. PT/OT/speech. Telemetry to rule out arrhythmias. 2D echo showed left ventricular ejection fraction 60 to 65%. No thrombus or PFO. Telemetry to rule out arrhythmias. Patient counseled about tobacco abuse. Patient seems to be agitated so consider nicotine patch. Continue home medications. Continue medical management per primary team. Plan discussed in detail with the nursing staff , patient daughter at bedside
[2020-11-08] MEDS: Magnesium 2 GM/50 ML 2 GM in Premix Bag 1 BAG IVPB SCH (15:18)
--- NOTE | 2020-11-08 15:26 | PDOC.DS.DS ---
Provider Date of Admission: 11/05/20 17:48 Admitting Provider: Nirmal Betancourt MD Primary Care Physician: [facility] Hospital Course: 55 year-old female presented with right-sided weakness, dysphagia, and mild confusion. CT head showed acute left basal ganglia infarction. CTA head showed significant left internal carotid artery occlusion, ED physician talked to Dr. Hughes who stated that patient less likely to benefit from surgical intervention and recommended aspirin. -Continue with neurochecks -LDL level is 131--started on Lipitor -permissive HTN MRI of the brain shows acute infarct in the left basal ganglia -MRI brain wo contrast, Echo -daily aspirin and Lipitor -PT/OT/speech consulted -Echo showed EF of 65% and a normal size right ventricle no evidence of mitral regurgitation normal aortic valve. (2) Carotid stenosis (3) HTN (hypertension) (4) DM type 2 (diabetes mellitus, type 2) S -Hgb A1c 9.1; creatinine in the normal range we will start her on Metformin in addition to sliding scale insulin. speech is much better improved speech therapy followed it looks like she probably need modified barium swallow study which she will be doing today. She is ambulating without any distress. Ongoing dysarthria. Patient discharge plan discussed and she prefers to go home and will arrange for home speech therapy. few episodes of nonsustained V. tach overnight. Her mag level is good. Cardiology cleared her She cannot wait to get the proper discharge. She pulled her IV and she left AMA. I have reconciled her home medications and a prescription for aspirin and Lipitor sent to her pharmacy. Her speech is much improved she speaks slowly but it is quite comprehensible. I thought she would benefit with outpatient speech therapy visits. - She left AMA. Lab Results: 11/08/20 04:16 11/08/20 04:16 Abnormal Lab Results - Last 48 hrs 11/07/20 16:17: Magnesium 2.7 H 11/08/20 00:12: Monocytes # 0.6 H 11/08/20 04:16: Carbon Dioxide 30 H 11/08/20 04:16: Monocytes # 0.6 H Vitals: Vital Signs (12 hours) Temp Pulse Resp BP Pulse Ox 11/08/20 12:00 98.2 F 95 20 159/78 H 97 11/08/20 08:00 97.9 F 107 H 20 136/78 96 11/08/20 03:57 98.7 F 93 14 147/55 H 97 Weight Weight 137 lb 4.8 oz Physical Exam: The patient was seen and examined on the day of discharge. Plan Prescriptions: Aspirin [Ecotrin Low Strength] 81 mg PO DAILY 30 Days #30 mg Atorvastatin Calcium [Lipitor] 40 mg PO HS 30 Days #30 tab Home Medications: Medication Instructions Recorded Confirmed Type Metoprolol Tartrate 25 mg PO BID 11/05/20 11/05/20 History metFORMIN [Glucophage] 500 mg PO BID-WM 11/05/20 11/05/20 History Gabapentin [Neurontin] 300 mg PO BID 11/06/20 11/06/20 History Aspirin [Ecotrin Low Strength] 81 mg PO DAILY 30 Days #30 mg 11/08/20 Rx Atorvastatin Calcium [Lipitor] 40 mg PO HS 30 Days #30 tab 11/08/20 Rx Allergies: No Known Allergies Allergy (Verified 11/05/20 20:48) Pt states she has no allergies to medications 11/05/20 Referrals: [facility] [Primary Care Provider] - Disposition: HOME Quality CORE MEASURES:: N/A
--- NOTE | 2020-11-09 02:41 | PQF ---
CLINICAL DOCUMENTATION CLARIFICATION FORM: Dear : Tory Curry Date / Time: 11/09/2020 0241 Please exercise your independent, professional judgment in responding to the clarification form. Clinical indicators are provided on the bottom of this form for your review Please check appropriate box(es): [ ] Cerebral edema / Vasogenic edema [ ] Compression of brain [ ] Other diagnosis [ ] Unable to determine Physician Signature: Date/Time: For continuity of documentation, please document condition throughout progress notes and discharge summary. Thank You To be completed by CDI/Coding staff for physician review: Present Clinical Indicators - Signs / Symptoms / Labs Results and Location in Medical Record [x] BP 184/64, Pulse 101, Resp 20, Temp 98.5 Vital signs 11/05 [x] CT brain: Acute nonhemorrhagic left basal ganglia infarction Imaging Dr Cortez 11/05 [x] CT angiogram: Occluded entire left internal carotid Imaging Dr Rodríguez 11/07 [x] MRI brain: Hemorrhage associated with infarct involving left deep shipman matter structures Imaging Dr Florence 11/06 [x] MRI brain: There is edema associated with the acute left basal ganglion infarct Imaging Dr Florence 11/06 [x] NIHSS 9 ED notes p3 11/05 [x] Right sided weakness, facial droop and slurred speech H&P p1 11/05 Dr Betancourt [x] Mild confusion H&P p4 11/05 Dr Betancourt [x] CVA with left carotid stenosis Consult Dr Horvath 11/06 Present Risk Factors Results and Location in Medical Record [x] DM H&P p1 11/05 Dr Betancourt [x] HTN H&P p1 11/05 Dr Betancourt [x] Smoker H&P p1 11/05 Dr Betancourt Present Treatments Results and Location in Medical Record [x] Neuro consult Consult Dr Horvath 11/06 [x] PT/OT/Speech consulted H&P p4 11/05 Dr Betancourt [x] Permissive HTN H&P p4 11/05 Dr Betancourt [x] Neuro monitoring H&P p4 11/05 Dr Betancourt CDS/Derrick Builder Signature: Zabrina Cueto Phone #: [phone] Date/Time: 11/09/20 024 This is a permanent part of the Medical Record [facility]
--- NOTE | 2020-11-09 02:42 | PQF ---
CLINICAL DOCUMENTATION CLARIFICATION FORM: Dear : Tory Curry Date / Time: 11/09/2020 0241 Please exercise your independent, professional judgment in responding to the clarification form. Clinical indicators are provided on the bottom of this form for your review Please check appropriate box(es): [ ] Left basal ganglia infarction with Hemorrhage [ ] Left basal ganglia infarction without Hemorrhage [ ] Other diagnosis [ ] Unable to determine Physician Signature: Date/Time: For continuity of documentation, please document condition throughout progress notes and discharge summary. Thank You. To be completed by CDI/Coding staff for physician review: Present Clinical Indicators - Signs / Symptoms / Labs Results and Location in Medical Record [x] BP 184/64, Pulse 101, Resp 20, Temp 98.5 Vital signs 11/05 [x] CT brain: Acute nonhemorrhagic left basal ganglia infarction Imaging Dr Cortez 11/05 [x] CT angiogram: Occluded entire left internal carotid Imaging Dr Rodríguez 11/07 [x] MRI brain: Hemorrhage associated with infarct involving left deep shipman matter structures Imaging Dr Florence 11/06 [x] MRI brain: There is edema associated with the acute left basal ganglion infarct Imaging Dr Florence 11/06 [x] NIHSS 9 ED notes p3 11/05 [x] Right sided weakness, facial droop and slurred speech H&P p1 11/05 Dr Betancourt [x] Mild confusion H&P p4 11/05 Dr Betancourt [x] CVA with left carotid stenosis Consult Dr Horvath 11/06 Present Risk Factors Results and Location in Medical Record [x] DM H&P p1 11/05 Dr Betancourt [x] HTN H&P p1 11/05 Dr Betancourt [x] Smoker H&P p1 11/05 Dr Betancourt Present Treatments Results and Location in Medical Record [x] Neuro consult Consult Dr Horvath 11/06 [x] PT/OT/Speech consulted H&P p4 11/05 Dr Betancourt [x] Permissive HTN H&P p4 11/05 Dr Betancourt [x] Neuro monitoring H&P p4 11/05 Dr Betancourt CDS/Sports Physiotherapist Signature: Zabrina Cueto Phone #: [phone] Date/Time: 11/09/20 0241 This is a permanent part of the Medical Record [facility]
--- NOTE | 2020-11-09 06:27 | CON ---
DATE OF CONSULTATION: 11/08/2020 INDICATION FOR CONSULTATION: A 55-year-old female, who is status post a left internal carotid artery occlusion with right-sided weakness. We were asked to see her due to supraventricular tachycardia episodes. HISTORY OF PRESENT ILLNESS: This is a very unfortunate 55-year-old female, who has a history of tobacco abuse, diabetes and hypertension, was admitted after she had developed some right-sided weakness and had some problems with speaking. She had some confusion. She was unable to call or use a telephone until about 6 to 8 hours after the original event had started. She was brought to the hospital, where she was found to have a left basal ganglia infarct. She also was found to have a totally occluded left internal carotid artery. The right internal carotid artery had a 30% stenosis and the right common-internal carotid artery had a 50% stenosis. She had an echocardiogram, which showed a normal ejection fraction. She apparently was doing relatively well until she started developing short runs of supraventricular tachycardia, the longest was about 26 beats. She previously at home had been on metoprolol. This medicine had not been restarted since she has been in the hospital. We will resume this medication. The patient has been up and ambulating and is anxious to go home. Otherwise, she denies any complaints. She denies any history of shortness of breath or chest pain. She does have a history of tobacco abuse unfortunately and has a history of diabetes as well as hypertension. There is some family history of some type of cardiac disease, but she is uncertain exactly what it was. She did say her father had some type of fibrillation, whether this is ventricular fibrillation or not, but apparently had a sudden cardiac , which may have been associated with that. PAST MEDICAL HISTORY: Significant for the diabetes, hypertension, fibromyalgia, and depression. She has had a cyst removal from the back. She has multiple tattoos. FAMILY HISTORY: As noted above. SOCIAL HISTORY: She continues to smoke half a pack a day until she came to the hospital. She smoked for about 40 years. No significant alcohol use. REVIEW OF SYSTEMS: Relatively unremarkable except what is noted in the history of present illness. She denied any GI or complaints. No musculoskeletal complaints. No claudication type symptoms. No urinary complaints and no cardiac complaints previously, only what is new now with the neurological symptoms. PHYSICAL EXAMINATION: GENERAL: Reveals a well-developed, well-nourished female. She is in no acute distress. She is somewhat agitated, wants to go home. VITAL SIGNS: Show a blood pressure of 159/78, previously it was 136/78. She is afebrile. Heart rate is in the 90s to 100s and sinus rhythm. Respiratory rate is about 20, and O2 saturation 97%. HEENT: Unremarkable. Carotid pulses are present. I could not hear any significant bruits despite having apparently some stenosis. On the left side, she has completely occluded internal carotid artery, but apparently the common carotid artery is not completely occluded. CHEST: Clear to auscultation without rales, rhonchi, or wheezing. CARDIOVASCULAR: Reveals a regular rate and rhythm. There is normal S1 and S2. There was no significant S3 or S4. There were no significant murmurs, heaves, thrills, bruits, or rubs. ABDOMEN: Unremarkable. EXTREMITIES: Showed no clubbing, cyanosis, or edema. Pedal pulses are present. She has multiple tattoos on her face and her arms as well as her legs. SKIN: Warm and dry. NEUROLOGIC: She does have some mild weakness noted on the right side, mainly she says in the arm more so than the leg, but otherwise she does not appear to be in any acute distress and appears to be of normal mentation. I did not have any baseline but she does seem to speak normally and has comprehension of the questions that are answered. LABORATORY DATA: Relatively unremarkable except for elevated blood sugars, and her CBC shows to be also within normal limits. Her toxicology did not show any abnormalities, no alcohol level; however, for illicit drug use, it was not performed. She was COVID negative. Her chemistries also were normal except for the blood sugar being elevated, and her cardiac enzymes showed negative cardiac enzyme, which was done on admission on 09/04 to be negative. IMPRESSION: 1. A 55-year-old female, who had been on beta-blockers in the past, who has presented with a cerebrovascular accident that is being dealt with by the primary care service, and Neurology has already seen the patient. She did have obvious pathology as noted above in the dictation. 2. History of hypertension. She had been on metoprolol in the past. This is not resumed on her medications when she arrived here and also this may be the etiology of her underlying supraventricular tachycardia. She may have been placed on this medication also in the past with short runs of supraventricular tachycardia. I do not see any ventricular tachycardia. At this time, she is stable and could be discharged to home. We will be more than happy to follow the patient as an outpatient. At this time, I do not see any indication for further evaluation with a negative echocardiogram with normal left ventricular systolic function, most likely she is at low risk of having acute cardiac events. She denied any type of cardiac symptoms such as chest pain or shortness of breath. 3. Hypertension. Once she is back on her beta blockers, the blood pressure may be improved. We would advise her to follow up with her primary care physician for further blood pressure checks. If need be, we will be more than happy to see the patient to help control the blood pressure. 4. Diabetes. This is also dealt with by the primary care physicians . At this time, we will continue her medications and resume her metoprolol. From a cardiac standpoint, she could be discharged to home. We can follow her as an outpatient. Job ID: [id number] OSIRIS
== END 2020-11-08 14:55 | disposition left against medical advice (07) | DRG 64 ==
LOC: ERS 14:44 → 2SE 17:48
PROVIDERS: ADMIT Internal Medicine; ATTEND Internal Medicine
DX: I63.232 Cerebral infarction due to unspecified occlusion or stenosis of left carotid arteries (principal); G93.6 Cerebral edema; G81.91 Hemiplegia, unspecified affecting right dominant side; I47.2 Ventricular tachycardia; R13.10 Dysphagia, unspecified; I10 Essential (primary) hypertension; E11.9 Type 2 diabetes mellitus without complications; Z20.822 Contact with and (suspected) exposure to COVID-19; R47.1 Dysarthria and anarthria; R29.810 Facial weakness; R29.709 NIHSS score 9; M79.7 Fibromyalgia; F17.210 Nicotine dependence, cigarettes, uncomplicated; Z79.899 Other long term (current) drug therapy; Z79.84 Long term (current) use of oral hypoglycemic drugs
CPT/HCPCS: 36415; 36416; 70450; 70496; 70498; 70551; 71045; 74230; 80048; 80053; 80061; 80307; 82550; 83036; 83605; 83690; 83735; 84484; 85025; 85610; 85730; 87635; 93005; 93306; 95712; 95819; 95957; J1815; J3475; Q9967; U0003; U0005

== ENCOUNTER 2021-08-13 09:06 | Outpatient (CLI) | payer MEDICAID, OTHER | END 2021-08-13 09:07 | disposition home or self-care (01) | LOC: BICRAD 09:06 | PROVIDERS: ATTEND Internal Medicine Cardiovascular Disease | DX: R06.02 Shortness of breath (principal) | CPT/HCPCS: 71046 ==

== ENCOUNTER 2022-07-10 14:01 | Outpatient (CLI) | payer OTHER ==
[2022-07-10 16:22] LABS: Hemoglobin 13.6 g/dL (12.0-15.5); Mean Corpuscular HGB CONC 33.7 g/dL (32.0-36.0); Mean Corpuscular Hemoglobin 28.5 pg (27.0-33.0); Mean Corpuscular Volume 84.3 fl (81.6-98.3); Mean Platelet Volume 11.5 fl (7.4-10.4); Platelet Count 228 10x3/uL (150-450); RBC Distribution Width 13.9 % (11.5-14.5); Red Blood Cell (RBC) Count 4.78 10x6/uL (3.90-5.03); White Blood Cell (WBC) Count 9.9 10x3/uL (3.5-10.5)
[2022-07-10 16:50] LABS: Anion Gap 17 mmol/L (10-20); BUN (Urea Nitrogen) 22 mg/dL (9.8-20.1); Calc. Creatinine Clearance 0 mL/min (70-130); Calcium 9.4 mg/dL (7.8-10.44); Carbon Dioxide 19 mmol/L (22-29); Chloride 110 mmol/L (98-107); Estimated GFR 68; Glucose 126 mg/dL (70-105); Potassium 4.8 mmol/L (3.5-5.1); Sodium 141 mmol/L (136-145)
== END 2022-07-10 14:02 | disposition home or self-care (01) ==
LOC: LABBT 14:01
PROVIDERS: ATTEND Internal Medicine Cardiovascular Disease
DX: Z01.818 Encounter for other preprocedural examination (principal); R09.89 Other specified symptoms and signs involving the circulatory and respiratory systems
CPT/HCPCS: 80048; 85027; 93005; 93010

== ENCOUNTER 2022-07-15 06:08 | Day surgery (SDC) | payer OTHER ==
[2022-07-14 10:37] VITALS: BMI 21.7
[2022-07-15] MEDS ORDERED: Heparin 10,000 UNITS/ 10 ML VIAL ONE (06:16)
[2022-07-15] MEDS ORDERED: Lidocaine 1% (PF) 30 ML VIAL ONE (06:16)
[2022-07-15] MEDS ORDERED: Midazolam HCl 2 mg/2 ml Vial ONE (06:42)
[2022-07-15] MEDS ORDERED: Fentanyl 100 MCG/2 ML VIAL ONE (06:42)
[2022-07-15] MEDS ORDERED: hydrALAZINE 20 MG/ML VIAL ONE (07:46)
[2022-07-15] MEDS ORDERED: Iopamidol 370 76% 100 ML VIAL ONE (10:07)
== END 2022-07-15 13:50 | disposition home or self-care (01) ==
LOC: SDC 06:08
PROVIDERS: ATTEND Internal Medicine Cardiovascular Disease
PROC: B41D1ZZ Fluoroscopy of Aorta and Bilateral Lower Extremity Arteries using Low Osmolar Contrast (ICD-10-PCS; principal; 2022-07-15)
DX: E11.51 Type 2 diabetes mellitus with diabetic peripheral angiopathy without gangrene (principal); I10 Essential (primary) hypertension; E78.2 Mixed hyperlipidemia; G89.29 Other chronic pain; M54.9 Dorsalgia, unspecified; M79.7 Fibromyalgia; I65.23 Occlusion and stenosis of bilateral carotid arteries; Z86.73 Personal history of transient ischemic attack (TIA), and cerebral infarction without residual deficits; Z87.891 Personal history of nicotine dependence; Z79.1 Long term (current) use of non-steroidal anti-inflammatories (NSAID); Z79.82 Long term (current) use of aspirin; Z79.84 Long term (current) use of oral hypoglycemic drugs; Z79.899 Other long term (current) drug therapy
CPT/HCPCS: 75716; 99152; 99153; C1769; J0360; J1644; J2001; J2250; J3010; Q9967

== ENCOUNTER 2023-09-02 13:56 | Outpatient (CLI) | payer MEDICARE, MEDICAID | END 2023-09-02 13:57 | disposition home or self-care (01) | LOC: BICMAMMO 13:56 | PROVIDERS: ATTEND Nurse Practitioner Family | DX: Z12.31 Encounter for screening mammogram for malignant neoplasm of breast (principal); Z80.3 Family history of malignant neoplasm of breast | CPT/HCPCS: 77063; 77067 ==